=== PATIENT | male | born 1980 | race Caucasian/White ===

== ENCOUNTER 2016-07-23 11:40 | Emergency (ER) | payer MEDICAID ==
[2016-07-23 11:51] VITALS: RESP 18
--- NOTE | 2016-07-23 12:56 | XR ---
EXAMINATION TYPE: XR chest 2V DATE OF EXAM: 07/23/2016 12:44 PM COMPARISON: NONE HISTORY: Chest pain TECHNIQUE: Frontal and lateral views of the chest are obtained. FINDINGS: Heart and mediastinum are normal. Lungs are clear. Diaphragm is normal. Bony thorax is int act. IMPRESSION: Normal chest
--- NOTE | 2016-07-23 13:14 | ED ---
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 Reports. Discomfort started in the right side of his chest wall and radiated through the chest now. No nausea no vomiting the pain increases with deep breathing and twisting and turning. Either. Denies direct trauma. - Related Data Home Medications Medication Instructions Recorded Confirmed Multivitamins, Thera [Multivitamin 1 tab PO DAILY 07/23/16 07/23/16 (formulary)] Previous Rx's Medication Instructions Recorded Ibuprofen 800 mg PO Q8H #15 tablet 07/23/16 predniSONE 20 mg PO DAILY #3 tab 07/23/16 Allergies Allergy/AdvReac Type Severity Reaction Status Date / Time No Known Allergies Allergy Verified 07/23/16 12:50 Review of Systems ROS Statement: Those systems with pertinent positive or pertinent negative responses have been documented in the HPI. Review of systems. Patient denies any visual acuity changes no headache no stiff neck no neck pain no shortness of breath but he does have discomfort when he takes a deep breath. Twisting and turning of the anterior chest lateral chest coon does increase the discomfort. When he puts heart pressure on his rib cage he states he can feel discomfort. No GI/ complaints no neuro deficits. All systems are reviewed. Past medical problems none. Family history mother had breast cancer. Father prostate cancer. Patient denies any surgeries. Denies ALLERGIES. Quit smoking 5 months ago. Drinks alcohol socially. Works as a [employer] ROS Other: All systems not noted in ROS Statement are negative. Past Medical History Past Medical History: No Reported History History of Any Multi-Drug Resistant Organisms: None Reported Past Surgical History: No Surgical Hx Reported Past Psychological History: No Psychological Hx Reported Smoking Status: Former smoker Past Alcohol Use History: Occasional Past Drug Use History: None Reported General Exam - General Exam Comments Initial Comments: General: The patient is awake and alert, complains discomfort initially started on the right rib cage and also across the chest and both rib cage areas. No fever. No nausea no vomiting. Pain increases with deep breathing. Pain increases with flexing twisting and turning his upper torso. Vital signs temp 98.7 pulse 81 respiratory rate 18 pulse ox 90% room air blood pressure 110/61. Eye: Pupils are equal, round and reactive to light, extra-ocular movements are intact ; there is normal conjunctiva bilaterally. No signs of icterus. Ears, nose, mouth and throat: There are moist mucous membranes and no oral lesions. Neck: The neck is supple, there is no tenderness , no anterior cervical lymphadenopathy. Cardiovascular: There is a regular rate and rhythm. No murmur, rub or gallop is appreciated. Respiratory: Lungs are clear to auscultation, respirations are non-labored, breath sounds are equal. No wheezes, stridor, rales, or rhonchi. Chest wall discomfort increases with deep breathing. He also wanted puts heart pressure against the rib cage in recovery to discomfort. Gastrointestinal: Soft, non-distended, non-tender abdomen without masses or organomegaly noted. There is no rebound or guarding present. No CVA tenderness. Back: No back pain Musculoskeletal: Normal ROM, no tenderness, There is no pedal edema. There is no calf tenderness or swelling. Sensation intact. Pulses equal bilaterally 2+. Neurological: No neuro deficits Skin: No skin rashes Limitations: no limitations Course Vital Signs 07/23/16 11:48 Temperature 98.7 F Pulse Rate 81 Respiratory 18 Rate Blood Pressure 110/61 O2 Sat by Pulse 98 Oximetry Medical Decision Making - Medical Decision Making Medical decision making; x-ray of the chest was done AP and lateral view. Does show evidence of a healed right clavicular fracture. Otherwise radiologist reviews that his findings are the heart and mediastinum are normal. Lung are clear. Diaphragm is normal. Bony thorax is intact. Impression normal chest. As read by Dr. Jo. At this time the patient will be placed on prednisone 20 mg daily for 3 days. As well as ibuprofen 800 mg 3 times daily for the next 5 days. Advised to follow-up with family physician if discomfort does not change or gets worse. Or return emergency room as needed Disposition Clinical Impression: Costochondritis, acute Disposition: HOME SELF-CARE Condition: Fair Instructions: Costochondritis (ED) Prescriptions: Ibuprofen 800 mg PO Q8H #15 tablet predniSONE 20 mg PO DAILY #3 tab Referrals: Mike Hernandez MD [Primary Care Provider] - 1-2 days Time of Disposition: 13:14
[2016-07-23 13:23] VITALS: BP 112/68; PULSE 73; TEMP 98.4
== END 2016-07-23 13:22 | disposition home or self-care (01) ==
LOC: EC 11:40
DX: M94.0 Chondrocostal junction syndrome [Tietze] (principal); Z87.891 Personal history of nicotine dependence; Z79.899 Other long term (current) drug therapy
CPT/HCPCS: 71020; 99284

== ENCOUNTER → 2024-09-08 | Outpatient (CLI) | payer MEDICAID ==
--- NOTE | 2024-09-08 07:38 | US ---
EXAMINATION TYPE: US abdomen complete DATE OF EXAM: 09/08/2024 COMPARISON: NONE CLINICAL INDICATION: Male, 44 years old with history of R17 JAUNDICE; Abnormal liver labs, social dri nker, patient denies any other signs, symptoms, or relevant history TECHNIQUE: Grayscale and color Doppler imaging of the abdomen was performed. FINDINGS: EXAM MEASUREMENTS: Liver Length: 12.9 cm Gallbladder Wall: 0.3 cm CBD: 0.3 cm, color Doppler imaging was utilized to isolate the common bile duct for measurement. Spleen: 12.3 cm Right Kidney: 11.2 x 5.5 x 6.1 cm Left Kidney: 11.6 x 6.0 x 5.3 cm PRODUCTION CONTROLLER NOTES: Pancreas: Tail obscured by overlying bowel gas Liver: Increased attenuation, no dilated ducts, masses or cysts. Gallbladder: wnl Evidence for sonographic Mcconnell's sign: No CBD: wnl Spleen: wnl Right Kidney: wnl, No hydronephrosis, calculi or masses seen Left Kidney: wnl, No hydronephrosis, calculi or masses seen Upper IVC: wnl Abd Aorta: wnl The liver is homogenous with increased echotexture. The intrahepatic portion of the IVC and proximal abdominal aorta are within normal limits. There is no evidence of cholelithiasis. Common bile duct is unremarkable. The visualized portions of the pancreas are homogenous. The spleen is unremarkabl e. Kidneys are symmetric and free of hydronephrosis. No renal lesions are seen. IMPRESSION: 1. No evidence for acute process. 2. Hepatic steatosis. [facility], , 09/08/2024 7:36 AM
[2024-09-08 12:09] LABS: Hepatitis A Antibody IgM Nonreactive (Nonreactive); Hepatitis B Surface Antigen Nonreactive (Nonreactive); Hepatitis C IgG Antibody Nonreactive (Nonreactive)
[2024-09-08 12:12] LABS: ALT 46 U/L (10-49); AST 29 U/L (14-35); Albumin 4.5 g/dL (3.8-4.9); Albumin/Globulin Ratio 2.25 Ratio (1.60-3.17); Alkaline Phosphatase 75 U/L (41-126); Amylase 33 U/L (23-121); Anion Gap 9.20 mmol/L (4.00-12.00); BUN/Creat Ratio 21.44 Ratio (12.00-20.00); Blood Urea Nitrogen 19.3 mg/dL (9.0-27.0); Calcium 9.3 mg/dL (8.7-10.3); Carbon Dioxide 25.8 mmol/L (21.6-31.8); Chloride 107 mmol/L (96-109); Ferritin 338.0 ng/mL (22.0-322.0); GGT 42 U/L (0-73); Globulin 2.0 g/dL (1.6-3.3); Glucose 102 mg/dL (70-110); Iron 124 UG/DL (65-175); Lipase 20 U/L (14-60); Potassium 4.8 mmol/L (3.5-5.5); Sodium 142 mmol/L (135-145); Total Iron Binding Capacity 297 UG/DL (228-460); Total Protein 6.5 g/dL (6.2-8.2)
== END | disposition home or self-care (01) ==
LOC: RADUSWWP 06:45
PROVIDERS: ATTEND Family Medicine
DX: K76.0 Fatty (change of) liver, not elsewhere classified (principal)
CPT/HCPCS: 76700; 80053; 80074; 82150; 82525; 82728; 82977; 83540; 83550; 83690